=== PATIENT | male | born 1990 | race Caucasian/White ===

== ENCOUNTER 2021-11-16 15:58 | Emergency (ER) | payer OTHER ==
[~2021-11-16] VITALS: Ht 182.9 cm; Wt 113.4 kg
[2021-11-16 16:13] VITALS: BP 158/89
[2021-11-16] MEDS ORDERED: AZITHROMYCIN500 MG PO (16:56)
[2021-11-16] MEDS ORDERED: MEDROLDOSEPACK PO (16:56)
== END 2021-11-16 17:05 | disposition home or self-care (01) ==
LOC: ER 15:58
DX: J02.9 Acute pharyngitis, unspecified (principal); Z20.822 Contact with and (suspected) exposure to COVID-19; I88.9 Nonspecific lymphadenitis, unspecified

== ENCOUNTER → 2021-11-24 | Outpatient (CLI) | payer OTHER ==
[~2021-11-24] MED LIST: AZITHROMYCIN500 MG PO; MEDROLDOSEPACK PO
== END ==
LOC: RAD 08:48
PROVIDERS: ATTEND Nurse Practitioner
DX: M79.672 Pain in left foot (principal)